=== PATIENT | female | born 1940 | race Hispanic/Latino ===

== ENCOUNTER 2019-04-09 06:25 | Day surgery (SDC) | payer OTHER ==
[2019-04-07 16:16] LABS: Urine Appearance CLEAR; Urine Blood NEGATIVE (NEG); Urine Color YELLOW; Urine Glucose NEGATIVE (NEG); Urine Protein TRACE (NEG); Urine Specific Gravity 1.025 (1.005-1.030); Urine Urobilinogen 0.2 mg/dL (0.2-1.0); Urine pH 5.5 (5.0-7.0)
[2019-04-07 16:16] LABS: Absolute Lymphocytes (CBC) 2.3 K/uL (0.7-4.9); Basophils % 1.3 % (0-1.3); Hematocrit 42.4 % (36.0-45.0); Lymphocytes % 26.1 % (15.3-44.8); MPV 9.3 fL (7.6-11.3); RBC Red Blood Cell Count 4.45 M/uL (3.86-4.86)
[2019-04-07 16:18] LABS: Urine Bilirubin 1+ (NEG); Urine Microscopic Reflex ORDER UMIC
[2019-04-07 16:28] LABS: Calcium Oxalate Crystals- Ur FEW (NONE SEEN); Urine Bacteria <20 /HPF (<20); Urine Culture Reflex Order NOT NEEDED; Urine RBC <5 /HPF (NONE SEEN)
[2019-04-07 16:29] LABS: Potassium 3.3 mmol/L (3.5-5.1)
--- OUTSIDE RECORDS SUMMARY | 2019-04-09 06:28 | XMS REPORT ---
:1940 Author Organization [facility] Address [address] [place] [address] Care Team Providers Name Role Phone Unavailable Unavailable Unavailable Payers Payer Name Policy Type Policy Number Effective Date Expiration Date Problems This patient has no known problems. Allergies, Adverse Reactions, Alerts Allergy Name Allergy Status Severity Reaction(s) Onset Inactive Treating Comments Type Date Date Clinician codeine DA Active 2017-09 00:00:0 0 hydrocodone DA Active 2017-09 00:00:0 0 ibuprofen DA Active U 2017-09 00:00:0 0 hydralazine DA Active 2017-09 00:00:0 0 losartan DA Active 2017-09 00:00:0 0 Medications This patient has no known medications. Encounters Start End Encounter Admission Attending Care Care Encounter Date/Time Date/Time Type Type Clinicians Facility Department ID 2019-02-02 2019-02-02 [id number] 16:10:00 16:10:00 Results Test Description Test Time Test Comments Text Results Atomic Results Result Comments GLYCOSYLATED HEMOGLOBIN (HA1C) 2019-01-09 10:42:00 Test Item Value Reference Range Comments GLYCOSYLATED HEMOGLOBIN (HA1C) (test code=GLYHGB) 5.7 % A1C 4.2-6.3 COMPREHENSIVE METABOLIC [id number] 10:37:00 Test Item Value Reference Range Comments SODIUM (test code=NA) 141 mmol/L 134-147 POTASSIUM (test code=K) 3.8 mmol/L 3.4-5.0 CHLORIDE (test code=CL) 109 mmol/L 100-108 CARBON DIOXIDE (test code=CO2) 27 mmol/L 21-32 ANION GAP (test code=GAP) 5.0 GAP calc 4.0-15.0 GLUCOSE (test code=GLU) 128 MG/DL 70-110 BLOOD UREA NITROGEN (test code=BUN) 17 MG/DL 7-18 GLOMERULAR FILTRATION RATE (test >=60 max estimate estGFR >60 code=GFR) CREATININE (test code=CREAT) 0.8 MG/DL 0.6-1.0 TOTAL PROTEIN (test code=PROT) 7.3 G/DL 6.4-8.2 ALBUMIN (test code=ALB) 3.8 G/DL 3.4-5.0 GLOBULIN (test code=GLOB) 3.5 GM/dL ALBUMIN/GLOBULIN RATIO (test 1.1 RATIO 1.2-2.2 code=A/G) CALCIUM (test code=CA) 8.8 MG/DL 8.5-10.1 BILIRUBIN TOTAL (test code=BILT) 0.70 MG/DL 0.2-1.2 SGOT/AST (test code=AST) 15 Unit/L 15-37 SGPT/ALT (test code=ALT) 20 Unit/L 12-78 ALKALINE PHOSPHATASE TOTAL (test 88 Unit/L 45-117 code=ALKP) LIPID PROFILE (CORONARY RISK)2019-01-09 10:37:00 Test Item Value Reference Range Comments TRIGLYCERIDES (test code=TRIG) 114 MG/DL 0-150 CHOLESTEROL (test code=CHOL) 176 MG/DL 133-200 CHOLESTEROL/HDL RATIO (test code=CHOLHDL) 3.38 RATIO >0 HDL CHOLESTEROL (test code=HDL) 52 MG/DL 40-59 NON-HDL CHOLESTEROL (test code=NHDL) 124 mg/dL <130 LIPOPROTEIN LDL (test code=LDL) 114 MG/DL 0-129 LDL/HDL (test code=LDL/HDL) 2.19 Ratio 1.48-3.22 Avg THYROID STIMULATING [id number] 10:37:00 Test Item Value Reference Range Comments THYROID STIMULATING HORMONE (test code=TSH) 1.650 mcIU/ML 0.340-4.820 CBC W/AUTO [id number] 10:21:00 Test Item Value Reference Range Comments WHITE BLOOD CELL (test code=WBC) 6.6 K/mm3 3.5-11.0 RED BLOOD CELL (test code=RBC) 4.35 M/mm3 4.70-6.10 HEMOGLOBIN (test code=HGB) 14.7 G/DL 10.4-14.9 HEMATOCRIT (test code=HCT) 41.2 % 31.5-44.1 MEAN CELL VOLUME (test code=MCV) 94.7 Fl 84.5-98.6 MEAN CELL HGB (test code=MCH) 33.8 pg 27.0-34.2 MEAN CELL HGB CONCETRATION (test code=MCHC) 35.7 G/DL 31.5-34.0 RED CELL DISTRIBUTION WIDTH (test code=RDW) 12.6 SD 11.5-14.5 PLATELET COUNT (test code=PLT) 196.0 K/mm3 150-450 MEAN PLATELET VOLUME (test code=MPV) 10.50 fL 7.0-10.5 NEUTROPHIL % (test code=NT%) 63.0 % 40-76 LYMPHOCYTE % (test code=LY%) 26.7 % 20.5-51.1 MONOCYTE % (test code=MO%) 8.8 % 1.7-9.3 EOSINOPHIL % (test code=EO%) 0.9 % 0.0-6.0 BASOPHIL % (test code=BA%) 0.6 % 0.0-2.0 NEUTROPHIL # (test code=NT#) 4.16 K/mm3 1.8-7.6 LYMPHOCYTE # (test code=LY#) 1.8 K/mm3 0.6-3.2 MONOCYTE # (test code=MO#) 0.6 K/mm3 0.3-1.1 EOSINOPHIL # (test code=EO#) 0.1 K/mm3 0.0-0.4 BASOPHIL # (test code=BA#) 0.0 K/mm3 0.0-0.1 MANUAL DIFF REQUIRED (test code=MDIFF) NO DIFF/SCN CRITERIA
[2019-04-09] MEDS ORDERED: SCOPOLAMINE HYDROBROMIDE PATCH TD ONE (06:48)
[2019-04-09] MEDS ORDERED: Ringers Lactate 1,000 ML IV ONE ×2 (06:49→09:04)
[2019-04-09] MEDS ORDERED: PROPOFOL 200 MG/20 ML VIAL IV ONE (06:54)
[2019-04-09] MEDS ORDERED: ROCURONIUM 50 MG/5 ML VIAL IV ONE ×2 (06:55→08:29)
[2019-04-09] MEDS ORDERED: GLYCOPYRROLATE 0.2 MG/ML SYR ONE ×3 (06:55→10:18)
[2019-04-09] MEDS ORDERED: LIDOCAINE 2% MPF 5 ML VIAL ONE (06:56)
[2019-04-09] MEDS ORDERED: FENTANYL CITR 250 MCG/5 ML ONE ×2 (06:58→09:03)
[2019-04-09] MEDS ORDERED: NEOSTIGMINE 1 MG/ML -10 ML VIAL ONE (07:00)
[2019-04-09] MEDS ORDERED: ONDANSETRON 4 MG/2 ML VIAL ONE ×2 (07:00→12:23)
[2019-04-09] MEDS ORDERED: dexAMETHasone 10 MG/ML VIAL ONE (08:09)
[2019-04-09] MEDS ORDERED: MORPHINE 10 MG/ML VIAL ONE (08:16)
[2019-04-09] MEDS ORDERED: HYDRALAZINE HCL 20 MG/ML VIAL ONE (08:26)
--- NOTE | 2019-04-09 08:56 | EKG ---
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
[2019-04-09] MEDS ORDERED: HYDROMORPHONE HCL 1 MG/ML INJ ONE (11:27)
[2019-04-09] MEDS ORDERED: ONDANSETRON 4 MG/2 ML VIAL IV ONE (12:27)
[2019-04-09] MEDS ORDERED: PROMETHAZINE 25 MG/ML VIAL ONE (12:57)
[2019-04-09] MEDS ORDERED: PROMETHAZINE 25 MG/ML VIAL IM ONE (12:58)
--- NOTE | 2019-04-09 21:51 | OP ---
Date of Procedure: 04/09/2019 Surgeon: Monica Molina MD Microbiology Manager: Dara Boyd. Preoperative Diagnoses: Pelvic pain, left adnexal mass. Postoperative Diagnoses: Pelvic pain, left ovarian/adnexal mass, and left lower quadrant omental and sigmoid colon adhesions. Anesthesia: General endotracheal. Specimens: Left ovary with cyst, cyst fluid, pelvic washings, right tube and ovary. Complications: None. Drains: None. Condition: Patient's condition is stable. Procedure: Diagnostic laparoscopy, lysis of adhesions of the omentum and the sigmoid colon, bilatera l salpingo-oophorectomy, cystoscopy with Glidewire placement and removal in the left ureter. Findings: Left adnexa had a large cyst about 18 to 20 cm almost below the umbilicus of the patient w ith about 1700 cc of clear fluid. No excrescences, no irregularities on the wall of the mass. It wa s completely smooth, completely deflated with aspiration through a fine lap leann needle and the site of the puncture was tied with Endoloop. The entire omentum was inspected closely. The tubes, ovari es, peritoneum of the pelvis, upper abdominal surfaces all completely unremarkable without evidence o f any tumor. The appendix appeared to be normal as well. There was a tiny hepatic cyst close to the falciform ligament, where it was attached to the right lob e of the liver. No other abnormalities were seen. She had 5 ports umbilicus to paraumbilical, 1 in the left upper quadrant and then 1 in the suprapubic area that was enlarged to 4 cm to get the specimen out. The left upper quadrant port was most likel y close to the epigastric vessels, so I had to suture the blood vessel. There was excellent hemostas is after this was done with the Bob-Aide needle. Indication: Patient is a 78-year-old referred to me from Dr. Hardin for a large adnexal mass, which was found on imaging. Patient had complaints of pelvic pain. No postmenopausal bleeding. Just felt like menstrual cramps and some pinkish discharge that did not come on her panties, noted only when s he wiped. She is more than 25 years since her menopause and had no other problems. On examination, the mass wa s easily palpable on abdominal exam. Pelvic exam confirmed it again. Uterus was small. On reviewin g the imaging, it appeared to be a multiloculated cystic mass without any other abnormalities of lymp h nodes, omental masses, or any free fluid in the pelvic cavity. Her CA-125 was normal at 11. I cou nseled the patient on recommendation for BSO versus referral to a [facility] oncologist to do the same thing . After discussing the low/moderate/high risk, she was definitely not on the highest risk category. Her age and the multi-loculation were the high risk features for this patient. After discussing the benefits, risks of doing this surgery with possibility that if there was cancer that she would have a second surgery, after she understood that, we went ahead and brought her to the OR. She had medica l clearance from Dr. Hardin. Description Of Procedure: After informed consent was verified, she was taken back to OR, placed in a supine fashion on the operating table. No antibiotics were given. After general anesthesia was giv en, her arms were tucked by the side, placed in a dorsal lithotomy position. Pelvic exam performed c onfirmed findings as before. Abdomen, vulva, vagina, and perineum were prepped and draped in a steri le fashion. A diagnostic VCare placed into the uterus in the usual fashion. Becerra placed. This are a was draped. A 1 cm supraumbilical incision was made with the scalpel using the laparoscopy techniq ue. Fascia was incised, picked up with Arnie, and the peritoneum entered bluntly. S retractors wer e placed. Lit introduced. Site of entry was checked, unremarkable. Findings as above. 5-mm rig ht and left lateral ports were placed. Then, a 5-mm left upper quadrant port was placed. Later on, a 5-mm suprapubic port was placed and then it was extended to a 15-cm port in order for me to get the bag in and later to 3 cm incision in order to get the specimen out. After trocars were placed under direct vision without problems, went ahead to do pelvic washings. Th en, after placing the patient in T-[place]and, the uterus was visualized unremarkable. Then, lap leann nee dle was placed through the right lateral port, and then after picking up the cyst on the topmost part , the needle was introduced into the cyst and aspirated. After fully aspirating this, an Endoloop wa s placed on it. There was no leakage. The spillage could be microscopic because of the entry of the needle. No gross spillage was noted. The right tube and ovary were removed with the LigaSure. In the left side, I opened up the broad lig ament, dissected the infundibulopelvic ligament laterally, it from the lateral wall, isola ting it medially. Medial leaf of the broad ligament was also dissected open. Ureter was inferior an d medial to this dissection. The peritoneum between the ureter and the infundibulopelvic ligament wa s opened up and a window created here with the help of sharp dissection with scissors and the LigaSur e. Once this window was wide open, then continued the dissection medially to the mesosalpinx. The t ubes had evidence of tubal ligation all the way to the cornual end. Then, the tube was removed and a long with it utero-ovarian ligament was taken down. Dissection was carried towards the opening in th e peritoneum where the ureter was isolated and dissected inferiorly. Once this was taken down, then IP ligament was cauterized and cut with the help of the vessel sealer and the specimen was left in th e posterior cul-de-sac. All the specimens were left in the pelvis. Then, the 5 port in the suprapub ic area was extended to 15 and using nasal speculum expanded. Then, the 15 bag was placed directly. All the specimens were placed in the bag and the bag was tied with string and retracted outside. Th en, the pelvic cavity was thoroughly irrigated and suctioned. Took out the ports under direct vision and the left upper quadrant port was the one that was bleeding. So, Bob-Aide needle with 3-0 Monocryl was used to put in a stitch in order for me to tie the inferior epigastric that was coming up. Then, all the ports were removed. Fascia at the umbilicus closed with 0 Vicryl in a figure-of-e ight fashion, simple subcutaneous stitch here and at the left upper quadrant port, this incision had to be extended and all the skin incisions closed with binu. In the suprapubic area, the nasal spe culum was again used to scoot out the specimen. Once this was removed and completely enclosed in a b ag without any problems, then the fascia was closed with the help of 0 Vicryl in a continuous running fashion and then the skin closed with binu. Cystoscopy was performed with a 17-Bruneian sheath, 30 -degree lens, normal saline. There was a normal jet of urine from the right ureter and the left uret er after Glidewire was placed and removed. Waited at least for 8 minutes before placing the guidewir e. No problems. After this, scope was removed. Instrument, needle, and sponge counts were correct at the end of the case. Patient tolerated the procedure well. CHIP/WINNIE Voice ID: [id number] Report ID: [id number]
== END 2019-04-09 13:25 | disposition home or self-care (01) ==
LOC: OR 06:25
PROVIDERS: ATTEND Obstetrics & Gynecology
PROC: 0UT24ZZ Resection of Bilateral Ovaries, Percutaneous Endoscopic Approach (ICD-10-PCS; 2019-04-09)
PROC: 0UT74ZZ Resection of Bilateral Fallopian Tubes, Percutaneous Endoscopic Approach (ICD-10-PCS; 2019-04-09)
PROC: 0TJB8ZZ Inspection of Bladder, Via Natural or Artificial Opening Endoscopic (ICD-10-PCS; principal; 2019-04-09 07:30)
DX: N83.292 Other ovarian cyst, left side (principal); K66.0 Peritoneal adhesions (postprocedural) (postinfection); N95.0 Postmenopausal bleeding; I10 Essential (primary) hypertension; I25.10 Atherosclerotic heart disease of native coronary artery without angina pectoris; I25.2 Old myocardial infarction; M81.0 Age-related osteoporosis without current pathological fracture; M19.90 Unspecified osteoarthritis, unspecified site; F41.9 Anxiety disorder, unspecified; Z90.49 Acquired absence of other specified parts of digestive tract; Z80.0 Family history of malignant neoplasm of digestive organs
CPT/HCPCS: 52000; 58661; 93005; 85025; 80048; 36415; 86900; 88108; 86850; 86901; 88305 ×2; J0360; J2704; J2710; J2550 ×2; J3010 ×2; J1100; J1170; J2405 ×3; 81003; 81015